=== PATIENT | male | born 1965 | race Caucasian/White ===

== ENCOUNTER 2018-11-27 10:50 | Emergency (ER) | payer OTHER ==
[2018-11-27] MEDS: EPINEPHRINE 1 MG/10 ML SYRINGE IV PRN ×3 (10:53→11:02)
[2018-11-27] MEDS ORDERED: SODIUM BICARBONATE 7.5% IVP PRN (11:58)
--- NOTE | 2018-11-27 12:18 | DI ---
EXAM: CHEST FRONTAL VIEW HISTORY: 12/16 placement. COMPARISON: 05/30/2009 FINDINGS: There is an endotracheal tube present ending over the tracheal air column at the level of the inferior clavicles. Prominent heart size. Mild central vascular congestion. No pneumothorax or visible pleural fluid. No lobar consolidation. No gross acute bony finding. Multiple densities ar e superimposed over the chest. IMPRESSION: 1. Endotracheal tube position appears appropriate radiographically.
--- NOTE | 2018-11-27 13:05 | ED.PDOC ---
General ED Provider: Dr. AMADEO GARCIA Chief Complaint: Cardiac Arrest Stated Complaint: CARDIAC ARREST Time Seen by Physician: 10:50 Mode of Arrival: Ambulance Information Source: Family (AFTER THE CODE FAMILY MEMBER STATED HE WAS NOT SEEN FOR A PERIOD OF TIME AND THEN FOUND ON THE FLOOR), EMT, Police Exam Limitations: Clinical condition, Other (CODE ) Nursing and Triage Documentation Reviewed and Agree: Yes Does patient meet sepsis criteria?: No If yes, has appropriate treatment been initiated?: No System Inflammatory Response Syndrome: Not Applicable Sepsis Protocol: For patient's 13 years and over: Temp is 96.8 and below OR 101 and greater Pulse >90 BPM Resp >20/minute Acutely Altered Mental Status Are patient's symptoms suggestive of a new infection, such as: -Pneumonia -Skin, Soft Tissue -Endocarditis -UTI -Bone, Joint Infection -Implantable Device -Acute Abdominal Infection -Wound Infection -Meningitis -Blood Stream Catheter Infection -Unknown Cardiac Resuscitation - Cardiac Resuscitation/Physical Exam Onset/Duration: Unknown Witnessed Arrest: No Down-time Before BLS Initiated: UNKNOWN Down-time Before ALS Initiated: UNKNOWN Airway Prehospital Findings: Reports: Patent (BUT COFFEE GROUND MATERIAL WAS NOTED IN THE ORAL CAVITY ) Breathing Prehospital Findings: Reports: Apnea Circulation/Rhythm Prehospital Findings: Reports: Pulses present Disability/Neurological Prehospital Findings: Reports: Unresponsive Airway Prehospital Intervention: Reports: Chin lift, Jaw thrust Breathing Prehospital Intervention: Reports: Bag-valve mask Circulation/Rhythm Prehospital Intervention: Reports: Chest compressions, IV/IO placed (BY EMS AN I/O WAS IN THE RIGHT LOWER LEG ), Epinephrine Airway Prehospital Response: NONE Breathing Prehospital Response: Present: Equal breath sounds (BY B.V.M ) Circulation/Rhythm Prehospital Response: Present: Asystole 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 Airway ED Findings: Patent Breathing ED Findings: Present: Apnea Circulation/Rhythm ED Findings: Present: Asystole Disability/Neurological ED Findings: Present: Unresponsive Airway ED Intervention: Chin lift, Jaw thrust (INTUBATED BY JOSE [id number]) Breathing ED Intervention: ETT replaced, Intubated by ED physician Circulation/Rhythm ED Intervention: Chest compressions (WAS IN ASYSTOLE AT ALL TIMES ) Breathing ED Response: ETT in airway, Equal breath sounds, Confirmed by auscultation, Confirmed by CO2 detector Circulation/Rhythm ED Response: Present: Asystole Right Pupil: Fixed, Dilated Left Pupil: Fixed, Dilated EMS/Code Sheet Reviewed: No (VERBAL REPORT OF CPR AND UNKNOWN DOWN TIME , AND 1 EPI ENROUTE.) Patient is a DNR: No (UNKNWON) Patient Has a Living Will: No (UNKNWON) Resuscitation Successful: No Preliminary Cause of : CARDIAC ARREST Differential Diagnoses: Acute PR, Asystole, Pulmonary Edema, Respiratory Failure , Sudden Quality Indicator For Non-Traumatic Chest Pain/Syncope: EKG Performed Past Medical History - Past Medical History Previously Healthy: No Endocrine: Reports: Unknown Cardiovascular: Reports: Unknown Respiratory: Reports: Unknown Hematological: Reports: Unknown Gastrointestinal: Reports: Unknown Genitourinary: Reports: Unknown Neuro/Psych: Reports: Unknown Musculoskeletal: Reports: Unknown Cancer: Reports: Unknown - Surgical History General Surgical History: Reports: Unknown - Family History Family History: Reports: Unknown - Social History Smoking Status: Former smoker Hx Substance Use: No Alcohol Screening: None Interpretation - Radiology Interpretation Radiology Interpretation By: Radiologist Exam Interpreted: Other (ET TUBE IN GOOD POSITION) Procedures - Intubation Indication: Present: Other (CODE BLUE) Time of Intubation: 10:53 (CRASH INTUBATION) Medications: Yes: Other (SEE ABOVE). No: Norcuron, Succinylcholine, Versed, Propofol Type of Tube Used: Endotracheal Tube Size: 7 Cricoid Pressure Used: Yes Tube [place] Used: Yes Position of Tube at Lip: 22 Suction Used: Yes Glidescope Used: No CO2 Detector Used: Yes Lung Sounds Equal Bilaterally: Yes Intubation Complications: Present: No complications Tube Inserted By: JOSE Barker Tube Placement Verified by X-ray: Yes Critical Care Note - Critical Care Note Total Time (mins): 15 Course - Course Hematology/Chemistry: 11/27/18 10:51 11/27/18 10:51 Orders, Labs, Meds: Lab Review 11/27/18 11/27/18 10:51 10:51 WBC 17.12 H RBC 4.02 L Hgb 13.5 L Hct 41.6 L MCV 103.5 H MCH 33.6 H MCHC 32.5 RDW Coeff of Mari 13.5 Plt Count 251 Immature Gran % (Auto) 1.5 Neut % (Auto) 81.3 Lymph % (Auto) 8.8 L [place] % (Auto) 8.2 Eos % (Auto) 0.0 Baso % (Auto) 0.2 Immature Gran # (Auto) 0.3 Neut # (Auto) 13.9 H Lymph # (Auto) 1.5 [place] # (Auto) 1.4 Eos # (Auto) 0.0 Baso # (Auto) 0.0 Sodium 141.5 Potassium 4.73 Chloride 102.8 Carbon Dioxide 24.5 Anion Gap 18.93 BUN 9.9 Creatinine 1.29 H Estimated GFR (MDRD) 58.00 BUN/Creatinine Ratio 7.67 Glucose 165.8 H Calcium 9.52 Total Bilirubin 0.69 AST 44.4 ALT 33.5 Alkaline Phosphatase 85.9 Total Creatine Kinase 515.9 H CK-MB (CK-2) 2.750 H CK-MB (CK-2) % 0.5300 Troponin I 0.040 Total Protein 7.28 Albumin 4.09 Globulin 3.19 Albumin/Globulin Ratio 1.28 Orders Category Date Time Status ED MANAGEMENT DEVELOPER APPLIED .ONCE EMERGENCY 11/27/18 11:58 Active ED IV/MEDIPORT/POWERPORT .ONCE EMERGENCY 11/27/18 11:58 Active CBC W/ AUTO DIFF Stat LAB 11/27/18 10:51 Completed COMPREHENSIVE METABOLIC PANEL Stat LAB 11/27/18 10:51 Completed CREATINE KINASE Stat LAB 11/27/18 10:51 Completed TROPONIN I Stat LAB 11/27/18 10:51 Completed 0.9 % Sodium Chloride [Saline Flush] MEDS 11/27/18 11:58 Active 1 syr IVF PRN PRN Epinephrine [Epinephrine 1 mg/10 ml Syringe] MEDS 11/27/18 11:58 Active 1 mg IV PRN PRN Sodium Bicarb 7.5% [Sodium Bicarbonate 7.5%] MEDS 11/27/18 11:58 Active 44.6 meq IVP PRN PRN CHEST, 1V AP ONLY Stat RADS 11/27/18 11:58 Completed Medications Generic Name Dose Route Start Last Admin Trade Name Freq PRN Reason Stop Dose Admin Epinephrine HCl 1 mg 11/27/18 11:58 11/27/18 11:02 Epinephrine 1 Mg/10 Ml Syringe IV 1 mg PRN PRN Administration DIRECTED BY PHYSICIAN-CODE Sodium Bicarbonate 44.6 meq 11/27/18 11:58 11/27/18 10:54 Sodium Bicarbonate 7.5% IVP 44.6 meq PRN PRN Administration DIRECTED BY PHYSICIAN-CODE Sodium Chloride 1 syr 11/27/18 11:58 Saline Flush IVF PRN PRN To flush IV Departure - Departure Time of Disposition: 13:12 Disposition: Discharge Problem: Cardiac arrest Condition: Pt referred to PMD for follow-up: No IPMP verified?: No Allergies/Adverse Reactions: Allergies No Known Allergies Allergy (Verified 11/27/18 12:11) Home Medications: Ambulatory Orders Clonazepam [Klonopin] 1 mg PO BID 05/20/14 Hydrocodone/Acetaminophen [[place] 10-325 Tablet] 1 each PO TID PRN 05/20/14 Olanzapine [Zyprexa] 15 mg PO BEDTIME 05/20/14 Buspirone HCl 7.5 mg PO BID 03/19/15 Olanzapine [Zyprexa] 20 mg PO BEDTIME #30 09/23/16 Disposition Discussed With: Family
[2018-11-27 13:27] VITALS: BP 00/00; TEMP 0; BMI 44.2
== END 2018-11-27 16:36 | disposition expired ==
LOC: ED 11:34
DX: I46.9 Cardiac arrest, cause unspecified (principal); R06.81 Apnea, not elsewhere classified
CPT/HCPCS: 31500; 36415; 80053; 82550; 82553; 84484; 85025; 96374; 96375; 99285